=== PATIENT | male | born 1995 | race Caucasian/White ===

== ENCOUNTER → 2017-09-10 15:54 | Outpatient (CLI) | payer BC, SELFPAY ==
--- NOTE | 2017-09-10 16:02 | XR_ITS ---
XR foot RT min 3V HISTORY: ITS.REASON: RIGHT FOOT PAIN ORDERING PHYSICIAN: Ashli Canas MD PATIENT AGE: 22 years COMPARISON: None FINDINGS: No fracture or dislocation. No lytic or blastic change. There is normal mineralization.. The joint spaces are well-preserved. No significant degenerative/arthritic changes. No erosive changes evident. IMPRESSION: Negative, no acute finding
== END ==
PROVIDERS: PCP Family Medicine; Visit Provider Family Medicine
DX: M79.671 Pain in right foot (principal)
CPT/HCPCS: 73630

== ENCOUNTER → 2018-09-03 12:14 | Outpatient (CLI) | payer BC, SELFPAY ==
[2018-09-03 12:55] LABS: Basophils # 0.1 K/mm3 (0-0.2); Basophils % 1.3 % (0.1-2.0); Eosinophils # 0.3 K/mm3 (0.0-0.4); Eosinophils % 5.5 % (0.1-12.0); Hemoglobin 13.6 g/dL (14.1-18.0); Lymphocytes # 1.6 K/mm3 (0.7-4.5); Lymphocytes % 31.1 % (10-50); Mean Corpuscular HGB Conc 31.5 g/dL (31.8-35.4); Mean Corpuscular Hemoglobin 28.4 pg (27.0-31.2); Mean Platelet Volume 8.4 fl (7.4-10.4); Monocytes # 0.3 K/mm3 (0.1-1.0); Monocytes % 6.6 % (1.7-9.3); Neutrophils # 2.8 K/mm3 (1.8-7.8); Neutrophils % 55.4 % (37.0-80.0); Platelet Count 287 K/mm3 (142-424); Red Blood Count 4.78 M/mm3 (4.60-6.20); White Blood Count 5.1 K/mm3 (4.8-10.8)
[2018-09-03 14:33] LABS: INR 0.98 (0.9-1.1); Prothrombin Time 10.2 seconds (9.4-11.8)
[2018-09-03 15:41] LABS: Alanine Aminotransferase 369 U/L (12-78); Albumin Level 3.5 gm/dL (3.4-5.0); Albumin/Globulin Ratio 0.9 (1.1-1.8); Anion Gap 16.1 mEq/L (5-15); Aspartate Amino Transferase 240 U/L (15-37); Bilirubin,Total 2.2 mg/dL (0.2-1.0); Blood Urea Nitrogen 9 mg/dL (7-18); Calcium 9.1 mg/dL (8.5-10.1); Carbon Dioxide 25 mmol/L (21.0-32.0); Chloride 104 mmol/L (98-107); Creatinine,Serum 0.87 mg/dL (0.70-1.30); Estimated Glomerular Filt Rate 109 ml/min (>60); GFR (African American) 132 ML/MIN (>60); Globulin 4.1 gm/dl (1.3-3.2); Glucose 89 mg/dL (74-106); Potassium 4.1 mmoL/L (3.5-5.1); Sodium 141 mmol/L (136-145); Total Protein,Serum 7.6 gm/dL (6.4-8.2)
[2018-09-03 15:44] LABS: C-Reactive Protein < 0.2 mg/L (0.0-0.9)
[2018-09-03 15:54] LABS: Alkaline Phosphatase 1356 U/L (46-116)
== END ==
PROVIDERS: Visit Provider Internal Medicine Gastroenterology
DX: L29.9 Pruritus, unspecified (principal); K83.09 Other cholangitis; R19.7 Diarrhea, unspecified
CPT/HCPCS: 36415; 80053; 85025; 85610; 86140; 87040

== ENCOUNTER → 2018-09-15 12:06 | Outpatient (CLI) | payer BC, SELFPAY ==
[2018-09-15 14:05] LABS: Alanine Aminotransferase 646 U/L (12-78); Albumin Level 3.5 gm/dL (3.4-5.0); Aspartate Amino Transferase 457 U/L (15-37); Bilirubin,Direct 1.1 mg/dL (0.0-0.2); Bilirubin,Total 2.1 mg/dL (0.2-1.0); Total Protein,Serum 7.6 gm/dL (6.4-8.2)
[2018-09-15 14:09] LABS: Alkaline Phosphatase 1581 U/L (46-116)
== END ==
PROVIDERS: Visit Provider Internal Medicine Gastroenterology
DX: K51.00 Ulcerative (chronic) pancolitis without complications (principal); K83.09 Other cholangitis; R74.8 Abnormal levels of other serum enzymes; R94.5 Abnormal results of liver function studies
CPT/HCPCS: 36415; 80076

== ENCOUNTER → 2018-09-22 15:35 | Outpatient (CLI) | payer BC, SELFPAY ==
[2018-09-22 16:10] LABS: INR 0.96 (0.9-1.1)
[2018-09-22 16:53] LABS: Alanine Aminotransferase 258 U/L (12-78); Albumin Level 3.7 gm/dL (3.4-5.0); Aspartate Amino Transferase 92 U/L (15-37); Bilirubin,Direct 1.2 mg/dL (0.0-0.2); Bilirubin,Indirect 0.7 mg/dL (0.0-0.9); Bilirubin,Total 1.9 mg/dL (0.2-1.0); Total Protein,Serum 7.9 gm/dL (6.4-8.2)
[2018-09-22 17:03] LABS: Alkaline Phosphatase 1237 U/L (46-116)
[2018-09-24 08:15] LABS: Immunoglobulin A, Qn 197 mg/dL (90-386); Immunoglobulin G, Qn 1385 mg/dL (700-1600)
[2018-09-24 14:43] LABS: Immunoglobulin M, Qn 215 mg/dL (20-172)
[2018-09-26 06:36] LABS: Immunoglobulin E, Total 52 IU/mL (6-495)
== END ==
PROVIDERS: Visit Provider Internal Medicine Gastroenterology
DX: R94.5 Abnormal results of liver function studies (principal); K83.09 Other cholangitis; K83.01 Primary sclerosing cholangitis
CPT/HCPCS: 36415; 80076; 82784; 82785; 85610

== ENCOUNTER → 2019-11-25 15:09 | Outpatient (CLI) | payer BC, SELFPAY ==
[2019-11-27 13:38] LABS: Covid-19 Nasal PCR Sendout Lex Not Detected
== END ==
PROVIDERS: PCP Family Medicine; Visit Provider Nurse Practitioner
DX: Z03.818 Encounter for observation for suspected exposure to other biological agents ruled out (principal)
CPT/HCPCS: U0004

== ENCOUNTER 2019-12-23 21:12 | Emergency (ER) | payer BC, SELFPAY ==
--- NOTE | 2019-12-23 21:01 | ECG_ITS ---
APPROVED REPORT Exam: Resting ECG HR:66 bpm ECG Measurements Heart Rate 66 AXES FL 138 P 61 QRSd 102 QRS 75 QT 386 T 63 QTc 404 Conclusion Normal sinus rhythm Normal ECG Electronically signed by : Edgard Miller, 12/25/2019 13:50:26
[2019-12-23 21:15] VITALS: BP 132/88; PULSE 75; RESP 16; TEMP 36.8; O2SAT 99; BMI 20.3
--- NOTE | 2019-12-23 21:21 | XR_ITS ---
PROCEDURE: XR CHEST 2V CLINICAL HISTORY: chest pain COMPARISON: No exams were available for comparison FINDINGS: The cardiomediastinal silhouette and pulmonary vascularity are within normal limits. The lungs are clear without infiltrates, suspicious nodules, or pleural effusions. 5 mm nodular opacity is noted over the right lower lobe laterally and may be due to granuloma. Stability may be confirmed with follow-up There is a left clavicular bone plate. IMPRESSION: No acute findings. Dictated by: Yovani Romero MD 12/24/2019 05:51 Yovani Romero MD in [place] 12/24/2019 05:51
[2019-12-23 21:29] LABS: Basophils # 0.1 K/mm3 (0-0.2); Basophils % 1.5 % (0.1-2.0); Eosinophils # 0.3 K/mm3 (0.0-0.4); Hematocrit 42.8 % (42.0-52.0); Hemoglobin 13.5 g/dL (14.1-18.0); Lymphocytes # 2.7 K/mm3 (0.7-4.5); Lymphocytes % 40.7 % (10-50); Mean Corpuscular HGB Conc 31.6 g/dL (31.8-35.4); Mean Corpuscular Hemoglobin 30.5 pg (27.0-31.2); Mean Corpuscular Volume 96.4 fl (80-94); Mean Platelet Volume 8.5 fl (7.4-10.4); Monocytes # 0.5 K/mm3 (0.1-1.0); Monocytes % 7.2 % (1.7-9.3); Neutrophils # 3.1 K/mm3 (1.8-7.8); Neutrophils % 46.6 % (37.0-80.0); Platelet Count 298 K/mm3 (142-424); Red Blood Count 4.44 M/mm3 (4.60-6.20); White Blood Count 6.6 K/mm3 (4.8-10.8)
[2019-12-23 21:30] VITALS: BP 132/86; PULSE 69; RESP 17; O2SAT 98
[2019-12-23 21:31] LABS: Chloride 104 mmol/L (98-107); Sodium 140 mmol/L (136-145)
[2019-12-23 21:32] LABS: Potassium 3.9 mmoL/L (3.5-5.1)
[2019-12-23 21:34] LABS: Blood Urea Nitrogen 18 mg/dl (9-20); Creatinine Clearance Estimated 110 mL/min (50-200); Estimated Glomerular Filt Rate 92 ml/min (>60); GFR (African American) 111 ML/MIN (>60)
[2019-12-23 21:35] LABS: Anion Gap 11.9 mEq/L (5-15); Calcium 9.9 mg/dl (8.4-10.2); Carbon Dioxide 28 mmol/L (22.0-30.0); Glucose 114 mg/dl (74-100)
--- NOTE | 2019-12-23 21:41 | [facility].EDCP ---
ED Disposition Clinical Impression: Atypical chest pain, Pleurisy Disposition: Home, Self-Care Condition on Discharge: Good Instructions: DI for Atypical Chest Pain Additional Instructions: call pcp in am Referrals: Edgard Mercer MD [Primary Care Provider] - - Critical Care Critical Care Time: No Attestation: On 12/23/19, the high probability of a clinically significant, sudden or life threatening deterioration of the following system(s) required my full and direct attention, intervention and personal management. The time I documented below is in addition to time spent performing reported procedures but includes the following listed in this critical care notation. Medical Decision Making - Medical Records Medical records reviewed: Yes: I reviewed the patient's medical records. - Marvin Inquiry Pt receiving controlled substance: No Vital Signs: 12/23/19 21:15 12/23/19 21:30 12/23/19 22:00 Temperature 98.3 F Temperature Source Oral Pulse Rate [Right] 75 69 68 Respiratory Rate 16 17 17 Blood Pressure [Right Arm] 132/88 132/86 125/87 Blood Pressure Mean [Right Arm] 102 101 99 Blood Pressure Source [Right Arm] Automatic Cuff Automatic Cuff Automatic Cuff Blood Pressure Position [Right Arm] Sitting Supine Supine 02 Sat by Pulse Oximetry 99 98 97 Oxygen Delivery Method Room Air Room Air Room Air - Lab Data Lab results reviewed: Yes: I reviewed the patient's lab results. Lab Results 12/23/19 21:15: WBC 6.6, RBC 4.44 L, Hgb 13.5 L, Hct 42.8, MCV 96.4 H, MCH 30.5, MCHC 31.6 L, RDW 13.0, Plt Count 298, MPV 8.5, Neut % (Auto) 46.6, Lymph % (Auto) 40.7, [place] % (Auto) 7.2, Eos % (Auto) 4.0, Baso % (Auto) 1.5, Neut # (Auto) 3.1, Lymph # (Auto) 2.7, [place] # (Auto) 0.5, Eos # (Auto) 0.3, Baso # (Auto) 0.1 12/23/19 21:15: Sodium 140, Potassium 3.9, Chloride 104, Carbon Dioxide 28, Anion Gap 11.9, BUN 18, Creatinine 1.00, Estimated Creat Clear 110, Estimated GFR 92, Est GFR ( Amer) 111, Glucose 114 H, Calcium 9.9, Troponin I < 0.01 12/23/19 21:45: Urine Opiates Screen Negative, Urine Methadone Screen Negative, Ur Barbituates Screen Negative, Ur Phencyclidine Scrn Negative, Ur Amphetamines Screen Negative, U Benzodiazepines Scrn Negative, Urine Cocaine Screen Negative, U Marijuana (THC) Screen Negative Result diagrams: 12/23/19 21:15 12/23/19 21:15 Orders (Tests/Meds): ED MEDICATIONS Generic Name Dose Route Start Last Admin Trade Name Freq PRN Reason Stop Dose Admin Sodium Chloride 1,000 mls @ 999 mls/hr 12/23/19 21:30 12/23/19 21:41 Sod Chlor 0.9% 1000ml Bag IV 12/23/19 22:30 999 mls/hr .Q1H1M YOLIS Administration Discontinued Medications Generic Name Dose Route Start Last Admin Trade Name Freq PRN Reason Stop Dose Admin Aspirin 324 mg 12/23/19 21:23 12/23/19 21:40 Aspirin 81mg Chewable Tablet PO 12/23/19 21:24 324 mg ONCE ONE Administration Ioversol 70 ml 12/23/19 22:18 12/23/19 22:19 Ioversol-350 (74%) 100ml Vial IV 12/23/19 22:19 70 ml ONCE ONE Administration Protocol Ketorolac Tromethamine 30 mg 12/23/19 23:07 12/23/19 23:10 Ketorolac 30mg/Ml Vial IV 12/23/19 23:08 30 mg ONCE ONE Administration Methylprednisolone Sodium Succinate 125 mg 12/23/19 23:07 12/23/19 23:10 Methylprednisolone Sod Succ 125mg Vial IV 12/23/19 23:08 125 mg ONCE ONE Administration Sodium Chloride 40 ml 12/23/19 22:18 12/23/19 22:19 0.9 % Sodium Chloride 50 Ml Vial IV 12/23/19 22:19 40 ml ONCE ONE Administration Sodium Chloride 10 ml 12/23/19 22:18 12/23/19 22:19 Sodium Chloride 0.9% 10ml Syr (Rad Only) IV 12/23/19 22:19 10 ml ONCE ONE Administration ORDERS Category Date Time Status CT Chest w/PE protocol [CT angio chest] Stat Cat Scan 12/23/19 21:54 Taken Chest XR 2 view (NOT portable) [XR chest 2V] Stat Exams 12/23/19 21:21 Taken Troponin I Q3H Lab 12/24/19 00:30 Ordered Troponin I Q3H Lab 12/24/19 03:30 Ordered
[2019-12-23 21:54] LABS: Troponin I < 0.01 ng/ml (0.00-0.034)
--- NOTE | 2019-12-23 21:54 | CT_ITS ---
PROCEDURE: CT ANGIO CHEST CLINCIAL INDICATION: sob Shortness of breath and chest pain COMPARISON: No exams were available for comparison TECHNIQUE: IV Contrast: 70ML OPTIRAY 350 Axial images obtained with sagittal and coronal reformats. All CT scans at the facility use one or more dose reduction, viz: automated exposure control, ma/kV adjustment per patient size (including targeted exams where dose is matched to indication, i.e. head), or iterative reconstruction technique. FINDINGS: HEART AND MEDIASTINAL STRUCTURES: No mediastinal or hilar mass or adenopathy. No evidence of pulmonary embolus. LUNGS AND PLEURAL SPACES: There is calcified granuloma in the right lung base. There is an azygos fissure as a normal variant. 5 mm nodule is noted in the left midlung may be due to a fissural node. BONY STRUCTURES: Prior ORIF left clavicle UPPER ABDOMEN: Unremarkable. ADDITIONAL FINDINGS: No other significant abnormalities. IMPRESSION: 1. No acute pulmonary embolus. 2. Old granulomatous disease Dictated by: Yovani Romero MD 12/24/2019 07:03 Yovani Romero MD in [place] 12/24/2019 07:03
[2019-12-23 22:00] VITALS: BP 125/87; PULSE 68; RESP 17; O2SAT 97
[2019-12-23 22:12] LABS: Barbiturates Screen,Urine Negative ng/ml (<200)
[2019-12-23 22:13] LABS: Amphetamine/Metha Screen,Urine Negative ng/ml (<1000); Benzodiazepines Screen,Urine Negative ng/ml (<200)
[2019-12-23 22:14] LABS: Cannabinoid Screen,Urine Negative ng/ml (<50); Methadone Screen,Urine Negative ng/ml (<300)
[2019-12-23 22:15] LABS: Cocaine Screen,Urine Negative ng/ml (<300)
[2019-12-23 22:16] LABS: Opiate Screen,Urine Negative ng/ml (<300); Phencyclidine Screen,Urine Negative ng/ml (<25)
[2019-12-23 23:15] VITALS: BP 130/56; PULSE 60; RESP 14; TEMP 36.8; O2SAT 99
== END 2019-12-23 23:26 | disposition home or self-care (01) ==
PROVIDERS: Emergency Provider Emergency Medicine; PCP Family Medicine
DX: R07.89 Other chest pain (principal); R09.1 Pleurisy; Z88.2 Allergy status to sulfonamides; Z88.5 Allergy status to narcotic agent
CPT/HCPCS: 71046; 71275; 80048; 80305; 84484; 85025; 93005; 96365; 96375; 99283; Q9967

== ENCOUNTER → 2020-03-23 17:01 | Outpatient (CLI) | payer BC, SELFPAY ==
[2020-03-23 17:56] LABS: Basophils # 0.2 K/mm3 (0-0.2); Basophils % 3.7 % (0.1-2.0); Eosinophils # 0.2 K/mm3 (0.0-0.4); Eosinophils % 3.3 % (0.1-12.0); Hematocrit 44.3 % (42.0-52.0); Hemoglobin 14.8 g/dL (14.1-18.0); Lymphocytes # 1.9 K/mm3 (0.7-4.5); Lymphocytes % 30.1 % (10-50); Mean Corpuscular HGB Conc 33.4 g/dL (31.8-35.4); Mean Corpuscular Hemoglobin 30.7 pg (27.0-31.2); Mean Corpuscular Volume 91.8 fl (80-94); Mean Platelet Volume 11.4 fl (7.4-10.4); Monocytes # 0.5 K/mm3 (0.1-1.0); Monocytes % 8.2 % (1.7-9.3); Neutrophils # 3.5 K/mm3 (1.8-7.8); Neutrophils % 54.8 % (37.0-80.0); Platelet Count 292 K/mm3 (142-424); Red Blood Count 4.83 M/mm3 (4.60-6.20); Red Cell Distribution Width 15.4 % (11.5-17.5); White Blood Count 6.3 K/mm3 (4.8-10.8)
[2020-03-23 18:00] LABS: Chloride 102 mmol/L (98-107)
[2020-03-23 18:01] LABS: Potassium 4.5 mmoL/L (3.5-5.1); Sodium 139 mmol/L (136-145)
[2020-03-23 18:03] LABS: Alanine Aminotransferase 315 U/L (12-78); Alkaline Phosphatase 1130 U/L (38-126); Aspartate Amino Transferase 160 U/L (17-59); Bilirubin,Total 2.4 mg/dl (0.2-1.3); Blood Urea Nitrogen 11 mg/dl (9-20); Estimated Glomerular Filt Rate 103 ml/min (>60); GFR (African American) 124 ML/MIN (>60)
[2020-03-23 18:04] LABS: Albumin Level 4.7 g/dl (3.5-5.0); Albumin/Globulin Ratio 1.2 (1.1-1.8); Anion Gap 13.5 mEq/L (5-15); Calcium 10.4 mg/dl (8.4-10.2); Carbon Dioxide 28 mmol/L (22.0-30.0); Globulin 3.8 g/dL (1.3-3.2); Glucose 99 mg/dl (74-100); Total Protein,Serum 8.5 g/dl (6.3-8.2)
[2020-03-23 18:35] LABS: Gamma Glutamyl Transpeptidase 943 U/L (15-73)
[2020-03-25 09:55] LABS: CA 19-9 16 U/mL (0-35)
== END ==
PROVIDERS: PCP Family Medicine; Visit Provider Internal Medicine
DX: R94.5 Abnormal results of liver function studies (principal)
CPT/HCPCS: 36415; 80053; 82977; 85025; 86316

== ENCOUNTER → 2020-10-08 22:23 | Outpatient (CLI) | payer BC, SELFPAY ==
[2020-10-08 22:40] LABS: Influenza A, PCR Not Detected (NotDetected); Influenza B, PCR Not Detected (NotDetected)
[2020-10-08 23:04] LABS: Coronavirus 19, PCR Detected (NotDetected)
== END ==
PROVIDERS: PCP Family Medicine; Visit Provider Emergency Medicine
DX: Z20.822 Contact with and (suspected) exposure to COVID-19 (principal)
CPT/HCPCS: U0003

== ENCOUNTER → 2021-03-06 07:06 | Outpatient (CLI) | payer BC, SELFPAY ==
[2021-03-06 07:28] LABS: Basophils % 0.3 % (0.1-2.0); Eosinophils # 0.2 K/mm3 (0.0-0.4); Eosinophils % 4.5 % (0.1-12.0); Hematocrit 44.3 % (42.0-52.0); Hemoglobin 14.5 g/dL (14.1-18.0); Lymphocytes # 1.2 K/mm3 (0.7-4.5); Lymphocytes % 22.8 % (10-50); Mean Corpuscular HGB Conc 32.7 g/dL (31.8-35.4); Mean Corpuscular Hemoglobin 30.7 pg (27.0-31.2); Monocytes # 0.3 K/mm3 (0.1-1.0); Monocytes % 6.6 % (1.7-9.3); Neutrophils # 3.4 K/mm3 (1.8-7.8); Neutrophils % 65.9 % (37.0-80.0); Platelet Count 289 K/mm3 (142-424); Red Blood Count 4.72 M/mm3 (4.60-6.20); Red Cell Distribution Width 13.1 % (11.5-17.5); White Blood Count 5.2 K/mm3 (4.8-10.8)
[2021-03-06 07:36] LABS: INR 1.06 (0.9-1.1); Prothrombin Time 11.9 seconds (10.1-12.5)
[2021-03-06 08:00] LABS: Chloride 102 mmol/L (98-107); Potassium 3.9 mmoL/L (3.5-5.1); Sodium 138 mmol/L (136-145)
[2021-03-06 08:03] LABS: Alanine Aminotransferase 241 U/L (12-78); Albumin Level 4.2 g/dl (3.5-5.0); Albumin/Globulin Ratio 1.4 (1.1-1.8); Alkaline Phosphatase 1000 U/L (38-126); Anion Gap 10.9 mEq/L (5-15); Aspartate Amino Transferase 139 U/L (17-59); Bilirubin,Direct 1.4 mg/dl (0.0-0.4); Bilirubin,Total 2.1 mg/dl (0.2-1.3); Blood Urea Nitrogen 15 mg/dl (9-20); Carbon Dioxide 29 mmol/L (22.0-30.0); Estimated Glomerular Filt Rate 90 ml/min (>60); GFR (African American) 109 ML/MIN (>60); Glucose 90 mg/dl (74-100); Total Protein,Serum 7.2 g/dl (6.3-8.2)
[2021-03-06 08:57] LABS: 25-OH Vitamin D, Total 25.9 ng/mL (30-100)
[2021-03-07 08:22] LABS: CA 19-9 7 U/mL (0-35)
[2021-03-09 05:13] LABS: QuantiFERON-TB Gold Plus Negative (Negative)
== END ==
PROVIDERS: Visit Provider Internal Medicine Gastroenterology
DX: K51.019 Ulcerative (chronic) pancolitis with unspecified complications (principal); K83.01 Primary sclerosing cholangitis
CPT/HCPCS: 36415; 80053; 82248; 82306; 85025; 85610; 86316; 86480

== ENCOUNTER → 2021-06-15 07:03 | Outpatient (CLI) | payer OTHER, SELFPAY | PROVIDERS: PCP Family Medicine; Visit Provider Internal Medicine Gastroenterology | DX: Z01.812 Encounter for preprocedural laboratory examination (principal); Z11.52 Encounter for screening for COVID-19 | CPT/HCPCS: C9803; U0003; U0005 ==

== ENCOUNTER → 2021-08-25 07:40 | Outpatient (CLI) | payer OTHER, SELFPAY | PROVIDERS: PCP Family Medicine; Visit Provider Internal Medicine Gastroenterology | DX: Z01.818 Encounter for other preprocedural examination (principal); Z20.822 Contact with and (suspected) exposure to COVID-19 | CPT/HCPCS: C9803; U0003; U0005 ==

== ENCOUNTER → 2021-09-07 07:30 | Outpatient (CLI) | payer OTHER, SELFPAY ==
[2021-09-07 08:32] LABS: Alanine Aminotransferase 279 U/L (12-78); Albumin Level 4.3 g/dl (3.5-5.0); Alkaline Phosphatase 1498 U/L (38-126); Aspartate Amino Transferase 165 U/L (17-59); Bilirubin, Conjugated 0.6 mg/dL (0.0-0.3); Bilirubin,Direct 3.6 mg/dl (0.0-0.4); Bilirubin,Indirect 2.2 mg/dL (0.0-0.9); Bilirubin,Total 5.8 mg/dl (0.2-1.3); Bilirubin,Unconjugated 2.2 mg/dL (0.0-1.1); Total Protein,Serum 7.9 g/dl (6.3-8.2)
== END ==
PROVIDERS: PCP Family Medicine; Visit Provider Internal Medicine Gastroenterology
DX: K83.01 Primary sclerosing cholangitis (principal)
CPT/HCPCS: 36415; 80076

== ENCOUNTER → 2021-10-18 07:27 | Outpatient (CLI) | payer OTHER, SELFPAY | PROVIDERS: PCP Family Medicine; Visit Provider Internal Medicine Gastroenterology | DX: Z01.812 Encounter for preprocedural laboratory examination (principal); Z20.822 Contact with and (suspected) exposure to COVID-19 | CPT/HCPCS: C9803; U0003; U0005 ==

== ENCOUNTER → 2021-11-03 07:16 | Outpatient (CLI) | payer OTHER, SELFPAY | PROVIDERS: PCP Family Medicine; Visit Provider Emergency Medicine | DX: Z20.822 Contact with and (suspected) exposure to COVID-19 (principal) | CPT/HCPCS: C9803; U0003; U0005 ==

== ENCOUNTER → 2022-04-19 07:55 | Outpatient (CLI) | payer OTHER, SELFPAY ==
[2022-04-22 10:54] LABS: QuantiFERON-TB Gold Plus Negative (Negative)
== END ==
PROVIDERS: PCP Family Medicine; Visit Provider Internal Medicine
DX: K51.018 Ulcerative (chronic) pancolitis with other complication (principal)
CPT/HCPCS: 36415; 86480

== ENCOUNTER 2023-01-02 08:22 | Outpatient (CLI) | payer OTHER, SELFPAY ==
[2023-01-02 08:30] VITALS: BMI 21.7
[2023-01-02 08:55] LABS: Basophils # 0.1 K/mm3 (0-0.2); Basophils % 1.7 % (0.1-2.0); Chloride 106 mmol/L (98-107); Eosinophils # 0.4 K/mm3 (0.0-0.4); Eosinophils % 6.7 % (0.1-12.0); Hematocrit 45.4 % (42.0-52.0); Hemoglobin 15.1 g/dL (14.1-18.0); Lymphocytes # 1.5 K/mm3 (0.7-4.5); Mean Corpuscular HGB Conc 33.2 g/dL (31.8-35.4); Mean Corpuscular Hemoglobin 32.6 pg (27.0-31.2); Mean Corpuscular Volume 98.2 fl (80-94); Monocytes # 0.4 K/mm3 (0.1-1.0); Monocytes % 7.5 % (1.7-9.3); Neutrophils # 2.9 K/mm3 (1.8-7.8); Neutrophils % 56.2 % (37.0-80.0); Platelet Count 302 K/mm3 (142-424); Red Blood Count 4.63 M/mm3 (4.60-6.20); Sodium 140 mmol/L (136-145); White Blood Count 5.2 K/mm3 (4.8-10.8)
[2023-01-02 08:56] LABS: Potassium 4.2 mmoL/L (3.5-5.1)
[2023-01-02 08:58] LABS: Alanine Aminotransferase 128 U/L (12-78); Albumin Level 4.2 g/dl (3.5-5.0); Albumin/Globulin Ratio 0.9 (1.1-1.8); Alkaline Phosphatase 1043 U/L (38-126); Anion Gap 13.2 mEq/L (5-15); Aspartate Amino Transferase 101 U/L (17-59); Bilirubin,Total 2.3 mg/dl (0.2-1.3); Blood Urea Nitrogen 14 mg/dl (9-20); Calcium 9.4 mg/dl (8.4-10.2); Carbon Dioxide 25 mmol/L (22.0-30.0); Creatinine Clearance Estimated 142 mL/min (50-200); Estimated Glomerular Filt Rate 116 ml/min (>60); GFR (African American) 140 ML/MIN (>60); Globulin 4.6 g/dL (1.3-3.2); Glucose 121 mg/dl (74-100); Total Protein,Serum 8.8 g/dl (6.3-8.2)
[2023-01-02 09:04] LABS: C-Reactive Protein 1.3 mg/L (0-4)
[2023-01-02 09:06] VITALS: BP 132/81; PULSE 66; RESP 18; TEMP 36.7; O2SAT 100
[2023-01-02 09:30] VITALS: BP 140/88; PULSE 58; RESP 18
[2023-01-02 09:45] VITALS: BP 143/94; PULSE 62; RESP 18
[2023-01-02 10:00] VITALS: BP 136/85; PULSE 65; RESP 18
[2023-01-02 10:15] VITALS: PULSE 68; RESP 18
[2023-01-02 10:22] VITALS: BP 132/77; PULSE 64; RESP 18; O2SAT 99
== END 2023-01-02 10:22 | disposition home or self-care (01) ==
LOC: INF 08:24
PROVIDERS: PCP Family Medicine; Visit Provider Internal Medicine Gastroenterology
DX: K51.90 Ulcerative colitis, unspecified, without complications (principal)
CPT/HCPCS: 80053; 85025; 86140; 96413; J3590

== ENCOUNTER 2023-05-21 17:56 | Outpatient (CLI) | payer OTHER, SELFPAY | END 2023-05-21 23:59 | LOC: LAB.DROPOF 18:00 | PROVIDERS: PCP Family Medicine; Visit Provider Internal Medicine Gastroenterology | DX: K51.90 Ulcerative colitis, unspecified, without complications (principal) ==

== ENCOUNTER 2023-05-25 13:42 | Emergency (ER) | payer OTHER, SELFPAY ==
[2023-05-25 14:00] VITALS: BP 129/75; PULSE 72; RESP 18; TEMP 36.8; O2SAT 98; BMI 21.7
--- NOTE | 2023-05-25 14:16 | EXP.UTC ---
Discharge Plan Disposition Patient Disposition: Home, Self-Care Condition: Good Prescriptions Prescriptions: New cephalexin 500 mg tablet 500 mg PO BID 10 Days Qty: 20 0RF mupirocin 2 % ointment 1 applic topical BID Qty: 15 0RF No Action trazodone 50 mg tablet 50 mg PO DAILY colestipol 1 gram tablet 1 g PO DAILY Stelara 90 mg/mL syringe 90 mg SQ MONTHLY Referrals Follow up/Referrals: Edgard Mercer MD [Primary Care Provider] - See instructions Clinical Impressions Clinical Impression: Nasal abscess Instructions Patient Instructions: DI for Skin Abscess Discharge ED Provider: Braxton ([facility])[place]ere [facility] [place] HPI General Stated complaint: scratch in l nostril pain, recurring nosebleed Mode of Arrival: Ambulatory Source of Information: Patient Limitations: No Limitations Time Seen by Provider: 05/25/23 14:16 Description of Symptoms (Recalled from Triage Doc. by RN): Pt's daughter scratched his nose a week ago. HEENT Symptoms (Recalled from RN notes): No Resp Symptoms (Recalled from RN notes): No Skin Symptoms (Recalled from RN notes): Yes MS Symptoms (Recalled from RN notes): No Functional Status (Recalled from RN notes): n/a History of Present Illness Provider Complaint: 28 yr old male presents for sore to nare. pt states his daughter scratched it last week and now having pain and swelling to nose and lip Related Data Home Medications Medication Instructions Recorded Confirmed colestipol 1 gram tablet 1 g PO DAILY 05/25/23 05/25/23 trazodone 50 mg tablet 50 mg PO DAILY 05/25/23 05/25/23 ustekinumab 90 mg/mL subcutaneous 90 mg SQ MONTHLY 05/25/23 05/25/23 syringe (Stelara) Previous Rx's Medication Instructions Recorded cephalexin 500 mg tablet 500 mg PO BID 10 days #20 tabs 05/25/23 mupirocin 2 % topical ointment 1 applic topical BID #15 grams 05/25/23 Allergies Allergy/AdvReac Type Severity Reaction Status Date / Time SULFA (SULFONAMIDE) Allergy Severe S-BLISTERING Uncoded 04/14/18 16:33 WELTS CODINE Allergy Intermediate NA-HALLUCIN Uncoded 04/14/18 16:33 ATIONS Worker's Comp Is this a Worker's Comp case?: No PFSH PFSH Disclaimer: The information contained in this section may have been updated after the patient was seen, as this information can be updated by other users. 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 smoker alcohol intake: never current occupational status: employed Travel in the last 8 weeks: None household members: family housing: house ROS Obtained: Yes All systems reviewed & no additional complaints except as documented Constitutional Constitutional: Reports system reviewed and no additional complaints, except as documented and Reports as per HPI Eyes Eyes: Reports system reviewed and no additional complaints, except as documented ENT Ears, Nose, Mouth, and Throat: Reports system reviewed and no additional complaints, except as documented, Reports as per HPI and Reports nose pain Cardiovascular Cardiovascular: Reports system reviewed and no additional complaints, except as documented Respiratory Respiratory: Reports system reviewed and no additional complaints, except as documented Musculoskeletal Musculoskeletal: Reports system reviewed and no additional complaints, except as documented Integumentary/Breasts Skin/Breast: Reports system reviewed and no additional complaints, except as documented Neurologic Neurologic: Reports system reviewed and no additional complaints, except as documented Endocrine Endocrine: Reports system reviewed and no additional complaints, except as documented Allergic/Immunologic Allergic/Immunologic: Reports system reviewed and no additional complaints, except as documented Physical Exam General General appearance: alert and in no apparent distress Eye Eye exam: Present normal appearance Expanded ENT Exam Nasal speculum exam: Left: other (sore and swelling) Nose/Mouth Image: 1. sore Respiratory Respiratory exam: Present normal lung sounds bilaterally Cardiovascular Cardiovascular exam: Present regular rate and normal rhythm Neurological Exam Neurological exam: Present alert Psychiatric Psychiatric exam: Present normal affect Skin Skin exam: Present warm Medical Decision Making Medical Records Medical records reviewed: Yes I reviewed the patient's medical records. Marvin Inquiry Pt receiving controlled substance: No Marvin was queried for this patient: No Vital Signs: 05/25/23 14:00 Temperature 98.2 F Temperature Source Oral Pulse Rate [Right Radial] 72 Respiratory Rate 18 Blood Pressure [Right Arm] 129/75 Blood Pressure Mean [Right Arm] 93 Blood Pressure Source [Right Arm] Automatic Cuff Blood Pressure Position [Right Arm] Sitting 02 Sat by Pulse Oximetry 98 Oxygen Delivery Method Room Air
[2023-05-25 14:33] VITALS: BP 129/75; PULSE 72; RESP 18; TEMP 36.8; O2SAT 98
== END 2023-05-25 14:33 | disposition home or self-care (01) ==
PROVIDERS: Emergency Provider Nurse Practitioner Family; PCP Family Medicine
DX: J34.0 Abscess, furuncle and carbuncle of nose (principal)
CPT/HCPCS: 99204; 99212; G0463

== ENCOUNTER 2023-11-06 09:06 | Outpatient (CLI) | payer OTHER, SELFPAY ==
[2023-11-06 10:27] LABS: Triglycerides 79 mg/dl (30-150); VLDL Cholesterol 16 mg/dL (0-40)
[2023-11-06 10:38] LABS: Chol/HDL Ratio 2.5 (1-3.5); Cholesterol 372 mg/dl (140-200); Direct LDL Cholesterol 117.94 mg/dL (100-129); HDL Cholesterol 148 mg/dl (40-60)
[2023-11-09 04:19] LABS: QuantiFERON-TB Gold Plus Negative (Negative)
== END 2023-11-06 23:59 | disposition home or self-care (01) ==
PROVIDERS: PCP Family Medicine; Visit Provider Internal Medicine Gastroenterology
DX: K51.00 Ulcerative (chronic) pancolitis without complications (principal); K51.90 Ulcerative colitis, unspecified, without complications
CPT/HCPCS: 36415; 80061; 86480

== ENCOUNTER 2023-12-24 18:23 | Emergency (ER) | payer OTHER, SELFPAY ==
[2023-12-24 18:42] VITALS: BP 128/84; PULSE 68; RESP 16; TEMP 36.6; O2SAT 100; BMI 21.7
--- NOTE | 2023-12-24 18:52 | ED_ITS ---
Discharge Plan Disposition Patient Disposition: Home, Self-Care Condition: Good Prescriptions Prescriptions: New clindamycin HCl 300 mg capsule 300 mg PO TID 7 Days Qty: 21 0RF mupirocin 2 % ointment 1 applic topical TID 10 Days Qty: 22 0RF Rx Instructions: apply to area as directed No Action trazodone 50 mg tablet 50 mg PO DAILY colestipol 1 gram tablet 1 g PO DAILY Stelara 90 mg/mL syringe 90 mg SQ MONTHLY cephalexin 500 mg tablet 500 mg PO BID 10 Days Qty: 20 0RF mupirocin 2 % ointment 1 applic topical BID Qty: 15 0RF Referrals Follow up/Referrals: Nagi Anderson MD [Primary Care Provider] - See instructions Activity Restrictions/Add. Instructions Additional Instructions/Restrictions: *Start antibiotic(s) immediately and be sure to take as ordered for the FULL length of time although you may be feeling better or start to see improvement in the next 24-48 hours Use topical Mupirocin on area as prescribed *Monitor closely. Outlined redness so that you can monitor easier. Follow up immediately for new or worsening symptoms including but not limited to redness, swelling, streaking from site fever or chills. *Warm compress 15 minutes 3-4 times day *Never squeeze or pop these on your own. Seek immediate medical attention next time this occurs *Monitor Temp. Tylenol every 4 hours as needed and ibuprofen every 6 hours as needed (as long as your primary care doctor has told you that it is ok to take either of these medications For fever, aches, pain. ER if no less that 101 despite Tylenol and ibuprofen ?Follow up with your family doctor/primary care physician as scheduled on Saturday for re-evaluation Clinical Impressions Clinical Impression: Cellulitis Instructions Patient Instructions: Cellulitis, Clindamycin Print Language Print Language: [place] Discharge [place] Emilie Suarez [facility] [place] General Stated complaint: right leg pain and hot to touch Mode of Arrival: Ambulatory Source of Information: Patient Limitations: No Limitations Time Seen by Provider: 12/24/23 18:53 Description of Symptoms (Recalled from Triage Doc. by RN): Patient reports a bump onhis right thigh that hurts is swollen, red and hot to touch. HEENT Symptoms (Recalled from RN notes): No Resp Symptoms (Recalled from RN notes): No Skin Symptoms (Recalled from RN notes): Yes MS Symptoms (Recalled from RN notes): No Functional Status (Recalled from RN notes): wnl History of Present Illness Provider Complaint: Patient states he has a bump like area on his right upper thigh area that is hard States it had been there for a little while and they thought it may have been an ingrown hair and they tried to see if they could get something out of it and now it is hard with surrounding redness and warmth sore to the touch so they came in to get it checked Related Data Home Medications ?Medication ?Instructions ?Recorded ?Confirmed colestipol 1 gram tablet 1 g PO DAILY 05/25/23 05/25/23 trazodone 50 mg tablet 50 mg PO DAILY 05/25/23 05/25/23 ustekinumab 90 mg/mL subcutaneous 90 mg SQ MONTHLY 05/25/23 05/25/23 syringe (Tylerlara) Previous Rx's ?Medication ?Instructions ?Recorded cephalexin 500 mg tablet 500 mg PO BID 10 days #20 tabs 05/25/23 mupirocin 2 % topical ointment 1 applic topical BID #15 grams 05/25/23 clindamycin HCl 300 mg capsule 300 mg PO TID 7 days #21 caps 12/24/23 mupirocin 2 % topical ointment 1 applic topical TID 10 days #22 12/24/23 grams Allergies Allergy/AdvReac Type Severity Reaction Status Date / Time SULFA (SULFONAMIDE) Allergy Severe S-BLISTERING Uncoded 04/14/18 16:33 WELTS CODINE Allergy Intermediate NA-HALLUCIN Uncoded 04/14/18 16:33 ATIONS Worker's Comp Is this a Worker's Comp case?: No [facility] Disclaimer: The information contained in this section may have been updated after the patient was seen, as this information can be updated by other users. 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 smoker alcohol intake: never current occupational status: employed Travel in the last 8 weeks: None household members: family housing: house ROS Obtained: Yes All systems reviewed & no additional complaints except as documented and Yes Systems reviewed as appropriate & no additional complaints except as documented Constitutional Constitutional: Reports system reviewed and no additional complaints, except as documented ENT Ears, Nose, Mouth, and Throat: Reports system reviewed and no additional complaints, except as documented and Reports as per HPI Cardiovascular Cardiovascular: Reports system reviewed and no additional complaints, except as documented and Reports as per HPI Respiratory Respiratory: Reports system reviewed and no additional complaints, except as documented and Reports as per HPI Gastrointestinal Gastrointestingal: Reports system reviewed and no additional complaints, except as documented and as per HPI Musculoskeletal Musculoskeletal: Reports system reviewed and no additional complaints, except as documented and Reports as per HPI Integumentary/Breasts Skin/Breast: Reports system reviewed and no additional complaints, except as documented, Reports as per HPI and Reports other Comments: red warm hard area on right upper thigh area with surrounding redness Physical Exam General General appearance: alert and in no apparent distress Respiratory Respiratory exam: Present normal lung sounds bilaterally; Absent respiratory distress or wheezes Cardiovascular Cardiovascular exam: Present regular rate, normal rhythm and normal heart sounds Expanded Lower Extremity Exam Right: Upper leg exam: Present other Leg image: 2 1. Tender, hard area noted with surrounding redness appears like cellulitis, no drainage Knee exam: Present normal inspection Lower leg exam: Present normal inspection Ankle exam: Present normal inspection Foot/toe exam: Present normal inspection Neurovascular/Tendon exam: Present normal capillary refill; Absent pulse deficit, motor deficit, extremity cold to touch or pallor Gait: observed and normal Neurological Exam Neurological exam: Present alert, oriented X3 and normal gait Medical Decision Making Medical Records Screening: Per USPSTF and CDC recommendations, given the prevalence of disease in our region, it is our hospital?s policy to screen for HIV and viral Hepatitis for all patients aged 18 and over and those with ongoing risk factors. Marvin Inquiry Pt receiving controlled substance: No Marvin was queried for this patient: No Vital Signs: 12/24/23 18:42 Temperature 97.9 F Temperature Source Oral Pulse Rate [Radial] 68 Respiratory Rate 16 Blood Pressure [Right Arm] 128/84 Blood Pressure Mean [Right Arm] 98 Blood Pressure Source [Right Arm] Automatic Cuff Blood Pressure Position [Right Arm] Sitting 02 Sat by Pulse Oximetry 100 Oxygen Delivery Method Room Air Medical Decision Narrative: Due to patient PMHX medication was discussed with pharmacy and will prescribe Clindamycin 300mg TID x 7 days and mupirocin
[2023-12-24] MEDS: CLINDAMYCIN 150MG CAPSULE 300 MG PO (19:19)
[2023-12-24 19:27] VITALS: BP 128/84; PULSE 68; RESP 16; TEMP 36.6; O2SAT 100
== END 2023-12-24 19:28 | disposition home or self-care (01) ==
PROVIDERS: Emergency Provider Nurse Practitioner; PCP Family Medicine
DX: L03.90 Cellulitis, unspecified (principal); M79.604 Pain in right leg; R22.31 Localized swelling, mass and lump, right upper limb
CPT/HCPCS: 99212; G0381

== ENCOUNTER 2024-04-20 17:23 | Emergency (ER) | payer OTHER, SELFPAY ==
[2024-04-20 18:36] VITALS: BP 129/91; PULSE 85; RESP 16; TEMP 36.8; O2SAT 100; BMI 248.4
--- NOTE | 2024-04-20 18:41 | ED_ITS ---
Discharge Plan Disposition Patient Disposition: Home, Self-Care Condition: Good Prescriptions Prescriptions: New prednisone 10 mg tablet 10 mg PO BID 3 Days Qty: 6 0RF amoxicillin 875 mg tablet 875 mg PO Q12H Qty: 20 0RF xwijhkemnlezmuh-nnhhshgyk-GB [Bromfed DM] 2-30-10 mg/5 mL Syrup 5 ml PO Q6H PRN (Reason: Cough) Qty: 240 0RF No Action trazodone 50 mg tablet 50 mg PO DAILY colestipol 1 gram tablet 1 g PO DAILY Stelara 90 mg/mL syringe 90 mg SQ MONTHLY cephalexin 500 mg tablet 500 mg PO BID 10 Days Qty: 20 0RF mupirocin 2 % ointment 1 applic topical BID Qty: 15 0RF clindamycin HCl 300 mg capsule 300 mg PO TID 7 Days Qty: 21 0RF mupirocin 2 % ointment 1 applic topical TID 10 Days Qty: 22 0RF Rx Instructions: apply to area as directed Referrals Follow up/Referrals: Nagi Anderson MD [Primary Care Provider] - See instructions Activity Restrictions/Add. Instructions Additional Instructions/Restrictions: Drink plenty of fluids. Take tylenol or ibuprofen for pain or fever. Take the medications as directed. Follow up with your regular doctor. GO TO THE ER FOR ANY WORSENING SYMPTOMS Clinical Impressions Clinical Impression: Pharyngitis Stand Alone Forms Stand Alone Forms: Work/School Release Instructions Patient Instructions: Sore Throat, DI for Pharyngitis/Tonsillopharyngitis -- Adult Print Language Print Language: Nepali Discharge ED Provider: Reggie Meek [facility] General Stated complaint: Sore throat Mode of Arrival: Ambulatory Source of Information: Patient Time Seen by Provider: 04/20/24 18:41 Description of Symptoms (Recalled from Triage Doc. by RN): SORE THROAT HEENT Symptoms (Recalled from RN notes): Yes Resp Symptoms (Recalled from RN notes): No Skin Symptoms (Recalled from RN notes): No MS Symptoms (Recalled from RN notes): No Functional Status (Recalled from RN notes): WNL Related Data Home Medications ?Medication ?Instructions ?Recorded ?Confirmed colestipol 1 gram tablet 1 g PO DAILY 05/25/23 05/25/23 trazodone 50 mg tablet 50 mg PO DAILY 05/25/23 05/25/23 ustekinumab 90 mg/mL subcutaneous 90 mg SQ MONTHLY 05/25/23 05/25/23 syringe (Tangelara) Previous Rx's ?Medication ?Instructions ?Recorded cephalexin 500 mg tablet 500 mg PO BID 10 days #20 tabs 05/25/23 mupirocin 2 % topical ointment 1 applic topical BID #15 grams 05/25/23 clindamycin HCl 300 mg capsule 300 mg PO TID 7 days #21 caps 12/24/23 mupirocin 2 % topical ointment 1 applic topical TID 10 days #22 12/24/23 grams amoxicillin 875 mg tablet 875 mg PO Q12H #20 tabs 04/20/24 ipgnlelzjaltoxj-uekntptuuxjsvtq-YB 5 ml PO Q6H PRN Cough #240 mL 04/20/24 2 mg-30 mg-10 mg/5 mL oral syrup (Bromfed DM) prednisone 10 mg tablet 10 mg PO BID 3 days #6 tabs 04/20/24 Allergies Allergy/AdvReac Type Severity Reaction Status Date / Time SULFA (SULFONAMIDE) Allergy Severe S-BLISTERING Uncoded 04/14/18 16:33 WELTS CODINE Allergy Intermediate NA-HALLUCIN Uncoded 04/14/18 16:33 ATIONS Worker's Comp Is this a Worker's Comp case?: No [facility] Disclaimer: The information contained in this section may have been updated after the patient was seen, as this information can be updated by other users. Social History , [employer]) Smoking Status: Never smoker alcohol intake: never current occupational status: employed Travel in the last 8 weeks: None household members: family housing: house Have you lived/traveled outside [place] in past 30 days?: No Contact w/someone who lives/traveled outside [place] past 30 days?: No Exposure to someone with infectious disease in past 14 days?: No Do you have a fever (greater than 100.4 F or 38 C)?: No Have you tested positive for COVID-19: No Exposed to someone with COVID-19 in past 14 days?: No Do you have a sore throat?: Yes Do you have a cough?: No Do you have any weakness?: No Do you have any diarrhea?: No Are you experiencing any unusual bleeding?: No Do you have any muscle aches/pain?: No Do you have any abdominal pain?: No Are you experiencing loss of taste or smell?: No ROS Obtained: Yes All systems reviewed & no additional complaints except as documented Constitutional Constitutional: Reports chills and Reports fever(s) Eyes Eyes: Denies eye discharge ENT Ears, Nose, Mouth, and Throat: Reports as per HPI Cardiovascular Cardiovascular: Denies chest pain Respiratory Respiratory: Denies chest congestion and Reports cough Gastrointestinal Gastrointestingal: Reports nausea; Denies abdominal pain, constipation, cramping, diarrhea or vomiting Musculoskeletal Musculoskeletal: Denies arthralgias Integumentary/Breasts Skin/Breast: Denies rash Neurologic Neurologic: Denies paresthesias Physical Exam General General appearance: alert and in no apparent distress Head Head exam: atraumatic, normocephalic and normal inspection Eye Eye exam: Present normal appearance, PERRL and EOMI ENT ENT exam: Present mucous membranes moist and normal external ear exam Expanded ENT Exam TM/Canal exam: Bilateral TM: erythema and bulging Nose exam: Absent sinus tenderness Mouth exam: Present normal external inspection; Absent drooling Teeth exam: Present normal inspection Throat exam: Present tonsillar erythema, tonsillomegaly and tonsillar exudate Neck Neck exam: Present normal inspection, full ROM and trachea midline; Absent tenderness, meningismus or lymphadenopathy Chest Chest inspection: Present normal inspection and symmetric chest wall rise; Absent tenderness Respiratory Respiratory exam: Present normal lung sounds bilaterally; Absent respiratory distress, wheezes or stridor Cardiovascular Cardiovascular exam: Present regular rate and normal rhythm; Absent systolic murmur or diastolic murmur Abdominal Exam Abdominal exam: Present soft and normal bowel sounds; Absent distention, tenderness, guarding, rebound or rigidity Extremities Exam Extremities exam: Present normal inspection and normal capillary refill; Absent calf tenderness Back Exam Back exam: Present normal inspection and full ROM; Absent tenderness, CVA tenderness (R) or CVA tenderness (L) Neurological Exam Neurological exam: Present alert, oriented X3 and CN II-XII intact Psychiatric Psychiatric exam: Present normal affect and normal mood Skin Skin exam: Present warm, dry, intact and normal color Medical Decision Making Medical Records Medical records reviewed: No I reviewed the patient's medical records. Screening: Per USPSTF and CDC recommendations, given the prevalence of disease in our region, it is our hospital?s policy to screen for HIV and viral Hepatitis for all patients aged 18 and over and those with ongoing risk factors. Marvin Inquiry Pt receiving controlled substance: No Vital Signs: 04/20/24 18:36 Temperature 98.3 F Temperature Source Oral Pulse Rate [Left Radial] 85 Respiratory Rate 16 Blood Pressure [Left Arm] 129/91 H Blood Pressure Mean [Left Arm] 103 02 Sat by Pulse Oximetry 100 Lab Data Lab results reviewed: Yes I reviewed the patient's lab results.
[2024-04-20 18:46] LABS: UTC Strep Screen (Rapid) Negative (Negative)
[2024-04-20 19:21] VITALS: BP 129/91; PULSE 85; RESP 16; TEMP 36.8
[2024-04-20] MEDS: AMOXICILLIN 500MG CAPSULE 500 MG PO (19:28)
== END 2024-04-20 19:30 | disposition home or self-care (01) ==
PROVIDERS: Emergency Provider Nurse Practitioner Family; PCP Family Medicine
DX: J02.9 Acute pharyngitis, unspecified (principal)
CPT/HCPCS: 87880; 99213; G0381

== ENCOUNTER 2024-06-19 13:15 | Outpatient (CLI) | payer OTHER, SELFPAY ==
[2024-06-19 13:31] LABS: Eosinophils # 0.1 K/mm3 (0.0-0.4); Eosinophils % 1.6 % (0.1-12.0); Hematocrit 37.8 % (42.0-52.0); Hemoglobin 12.3 g/dL (14.1-18.0); Lymphocytes % 25.7 % (10-50); Mean Corpuscular HGB Conc 32.5 g/dL (31.8-35.4); Mean Corpuscular Hemoglobin 30.1 pg (27.0-31.2); Mean Corpuscular Volume 92.4 fl (80-94); Monocytes # 0.5 K/mm3 (0.1-1.0); Monocytes % 13.6 % (1.7-9.3); Neutrophils # 2.2 K/mm3 (1.8-7.8); Neutrophils % 57.8 % (37.0-80.0); Platelet Count 274 K/mm3 (142-424); Red Blood Count 4.09 M/mm3 (4.60-6.20); Red Cell Distribution Width 13.4 % (11.5-17.5); White Blood Count 3.8 K/mm3 (4.8-10.8)
[2024-06-19 14:35] LABS: Direct LDL Cholesterol 99.02 mg/dL (100-129)
[2024-06-19 14:37] LABS: Alanine Aminotransferase 251 U/L (12-78); Albumin Level 4.4 g/dl (3.5-5.0); Albumin/Globulin Ratio 1.3 (1.1-1.8); Alkaline Phosphatase 508 U/L (38-126); Anion Gap 10.6 mEq/L (5-15); Aspartate Amino Transferase 170 U/L (17-59); Blood Urea Nitrogen 16 mg/dl (9-20); Calcium 9.9 mg/dl (8.4-10.2); Carbon Dioxide 31 mmol/L (22.0-30.0); Chloride 102 mmol/L (98-107); Estimated Glomerular Filt Rate 88 ml/min (>60); GFR (African American) 107 ML/MIN (>60); Globulin 3.3 g/dL (1.3-3.2); Glucose 72 mg/dl (74-100); Potassium 4.6 mmoL/L (3.5-5.1); Sodium 139 mmol/L (136-145); Total Protein,Serum 7.7 g/dl (6.3-8.2); Triglycerides 134 mg/dl (30-150); VLDL Cholesterol 27 mg/dL (0-40)
[2024-06-19 14:38] LABS: C-Reactive Protein < 0.3 mg/L (0-4); Chol/HDL Ratio 2.2 (1-3.5); Cholesterol 423 mg/dl (140-200); HDL Cholesterol 196 mg/dl (40-60)
== END 2024-06-19 23:59 | disposition home or self-care (01) ==
LOC: LAB 13:18
PROVIDERS: PCP Family Medicine; Visit Provider Internal Medicine Gastroenterology
DX: K51.00 Ulcerative (chronic) pancolitis without complications (principal)
CPT/HCPCS: 36415; 80053; 80061; 85025; 86140

== ENCOUNTER 2024-07-31 13:38 | Outpatient (CLI) | payer OTHER, SELFPAY ==
[2024-07-31 14:28] LABS: Semen Viscosity Normal (Normal)
[2024-07-31 14:29] LABS: Motility Quality Good Progression (Mod-Rapid); Sperm Motility 90 % (50-90)
[2024-07-31 16:49] LABS: 3Hr Motility Quality Good Progression (Mod-Rapid); 3Hr Sperm Motility 60 % (50-60); Sperm Morphology Normal (Normal)
[2024-07-31 16:53] LABS: Sperm Count 18 mil/mm3 (20-160)
== END 2024-07-31 23:59 | disposition home or self-care (01) ==
LOC: LAB 13:38
PROVIDERS: PCP Family Medicine; Visit Provider Obstetrics & Gynecology
DX: Z31.41 Encounter for fertility testing (principal)
CPT/HCPCS: 89320